=== PATIENT | male | born 1985 | race African-American/Black ===

== ENCOUNTER 2019-12-16 05:38 | Emergency (ER) | payer BC ==
[~2019-12-16] VITALS: Ht 182.9 cm; Wt 158.8 kg
[~2019-12-16 05:38] MED LIST: AMITRIPTYLINE H25 M2 PO; CARAFATE1 GM/10 ML PO; CENTRUM SILVER1 EAC2 PO; LISINOPRIL-HCT1 EAC2 PO; METOCLOPRAMIDE H5 MG PO; PANTOPRAZOLE SO40 M1 PO; PAXIL10 MG PO; PERCOCET 5-3251 EACH PO; PROMS25 WY RECTAL; TRANSDERM-SCO1 PATC1 TD; ZOFRAN ODT4 MG PO; ZOFRAN ODT8 MG PO
[2019-12-16 07:00] LABS: ABSOLUTE NEUTROPHILS 2.3 thou/uL (1.4-8.2); EOSINOPHILS 1.3 % (0.0-3.0); HEMATOCRIT 43.1 % (42.0-52.0); HEMOGLOBIN 14.5 gm/dL (14.0-18.0); LYMPHOCYTES 49.7 % (24.0-44.0); MCH 29.9 pg (26.0-34.0); MCHC 33.7 g/dL (28.0-37.0); MCV 88.7 fL (80.0-100.0); MONOCYTES 8.5 % (1.0-8.0); PLATELET COUNT 303 thou/uL (150-400); POLYS 39.5 % (36.0-66.0); RBC 4.85 mil/uL (4.50-6.00); RDW 14.2 % (10.5-14.5); WBC 5.9 thou/uL (4.0-11.0)
[2019-12-16 07:07] LABS: ANION GAP 12 mmol/L (7-16); BUN 7 mg/dL (7-18); CALCIUM 8.6 mg/dL (8.5-10.1); CHLORIDE 106 mmol/L (98-107); CO2 25 mmol/L (21-32); CREATININE 0.8 mg/dL (0.7-1.3); GLUCOSE 111 mg/dL (74-106); POTASSIUM 4.2 mmol/L (3.5-5.1); SODIUM 143 mmol/L (136-145)
[2019-12-16 07:17] LABS: ALBUMIN 3.7 g/dL (3.4-5.0); MAGNESIUM 1.9 mg/dL (1.8-2.4); SGOT 22 U/L (15-37); SGPT 50 U/L (30-65); TOTAL BILIRUBIN 0.4 mg/dL (0.2-1.0); TOTAL PROTEIN 7.4 g/dL (6.4-8.2); TROPONIN-I <0.06 ng/mL (<0.06)
[2019-12-16] MEDS ORDERED: NAPROSYN500 MG PO (07:22)
[2019-12-16] MEDS ORDERED: NORFLEX100 MG PO (07:22)
[2019-12-16] MEDS ORDERED: NORCO 10-325 T1 EACH PO (07:22)
[2019-12-16 08:40] VITALS: BP 154/96
--- NOTE | 2019-12-16 09:10 | EKG ---
[facility] [place] [address] ELECTROCARDIOGRAM REPORT Name: PRASHANT DECKER Room #: REG [facility]..#: [id number] Admission: 12/16/19 Attend Phys: Discharge: Date of : 87 Report #: [id number] THIS REPORT FOR: cc: Virginia Recinos MD, Melanie MD Lundgren,Eduard De Jesus MD [facility] ~ THIS REPORT FOR: //name// [facility] ED Test Date: 2019-12-16 Test Time: 07:42:50 Pat Name: PRASHANT DECKER Department: Room: Gender: Superintendent System Operation: [facility] : 1985 Requested By: Salomón Polk Order Number: [id number] MD: Eduard Baker Measurements Intervals [place] Rate: 66 P: 49 [place]: 191 QRS: 28 QRSD: 95 T: 25 QT: 394 QTc: 413 Interpretive Statements Sinus rhythm No significant abnormality Compared to ECG 02/21/2016 12:38:20 T-wave abnormality no longer present Electronically Signed On 12-16-2019 9:09:58 CDT by Eduard Baker [email or web address] <ELECTRONICALLY SIGNED> By: Eduard Baker MD, [facility] 12/16/19908 1 1 Eduard Baker MD, [facility] /EPI
== END 2019-12-16 08:50 | disposition home or self-care (01) ==
LOC: ER 05:38
PROVIDERS: Emergency Medicine
DX: S80.01XA Contusion of right knee, initial encounter (principal); S63.502A Unspecified sprain of left wrist, initial encounter; G89.29 Other chronic pain; M54.5 Low back pain; R51 Headache; I10 Essential (primary) hypertension; Z20.828 Contact with and (suspected) exposure to other viral communicable diseases; Z76.0 Encounter for issue of repeat prescription; Z79.899 Other long term (current) drug therapy; V43.52XA Car driver injured in collision with other type car in traffic accident, initial encounter; Y93.89 Activity, other specified; Y92.89 Other specified places as the place of occurrence of the external cause; Y99.8 Other external cause status

== ENCOUNTER 2020-08-25 12:21 | Emergency (ER) | payer BC ==
[~2020-08-25] VITALS: Ht 180.3 cm; Wt 163.3 kg
[~2020-08-25 12:21] MED LIST changes: +NAPROSYN500 MG PO; +NORCO 10-325 T1 EACH PO; +NORFLEX100 MG PO
[2020-08-25] MEDS ORDERED: BACLOFEN 10MG T10 MG PO (13:43)
[2020-08-25 14:48] VITALS: BP 165/90
== END 2020-08-25 14:48 | disposition home or self-care (01) ==
LOC: ER 12:21
DX: M54.42 Lumbago with sciatica, left side (principal); I10 Essential (primary) hypertension; G89.29 Other chronic pain; Z86.2 Personal history of diseases of the blood and blood-forming organs and certain disorders involving the immune mechanism

== ENCOUNTER 2021-01-10 22:24 | Emergency (ER) | payer BC ==
[~2021-01-10] VITALS: Ht 180.3 cm; Wt 142.4 kg
[~2021-01-10 22:24] MED LIST changes: +BACLOFEN 10MG T10 MG PO
[2021-01-10] MEDS ORDERED: PEPCID20 MG PO (23:42)
[2021-01-11 00:26] VITALS: BP 141/86
== END 2021-01-11 00:32 | disposition home or self-care (01) ==
LOC: ER 22:24
DX: R10.84 Generalized abdominal pain (principal); I10 Essential (primary) hypertension; Z79.899 Other long term (current) drug therapy